=== PATIENT | male | born 1980 | race Caucasian/White ===

== ENCOUNTER 2020-08-27 18:19 | Day surgery (SDCO) | payer OTHER ==
[~2020-08-27 18:19] MED LIST: CLARITIN10 MG PO; MOTRIN600 MG PO; NAPROXEN500 MG PO
[2020-08-27 19:04] LABS: INR 1.07 (0.9-1.2); PROTHROMBIN TIME 13.2 SECONDS (11.4-13.6); PTT 27.6 SECONDS (22.2-34.7)
[2020-08-27 19:05] LABS: BASOPHIL 0.8 % (0-2); EOSINOPHIL 1.8 % (0-5); HCT 41.7 % (42.0-52.0); HGB 13.9 g/dl (13.2-18.0); LYMPHOCYTE 38.5 % (15-48); MCH 27.8 pg (25.0-31.0); MCHC 33.3 g/dL (32.0-36.0); MCV 83.4 fL (78.0-100.0); MONOCYTE 9.6 % (0-12); NEUTROPHIL 48.5 % (41-80); NRBC 0; PLT 286 K/uL (150-400); RDW 12.4 % (11.5-14.0); WBC 7.6 K/uL (4.0-10.5)
[2020-08-27 19:17] LABS: ALBUMIN 3.9 g/dL (3.4-5.0); BILIRUBIN - TOTAL 0.2 mg/dL (0.2-1.0); BUN/CREAT RATIO (CALC) 18.2 RATIO; CREATININE 0.99 mg/dL (0.67-1.17); GLOBULIN (CALCULATION) 3.4 g/dL; POTASSIUM 3.1 mmol/L (3.5-5.1); TOTAL PROTEIN 7.3 g/dL (6.4-8.2)
[2020-08-28 05:56] LABS: BASOPHIL 0.7 % (0-2); EOSINOPHIL 3.8 % (0-5); HCT 39.3 % (42.0-52.0); HGB 12.8 g/dl (13.2-18.0); LYMPHOCYTE 46.7 % (15-48); MCH 27.6 pg (25.0-31.0); MCHC 32.6 g/dL (32.0-36.0); MCV 84.7 fL (78.0-100.0); MPV 9.1 fL (6.0-9.5); NEUTROPHIL 40.5 % (41-80); NRBC 0; PLT 240 K/uL (150-400); RBC 4.64 M/uL (4.70-6.00); RDW 12.4 % (11.5-14.0)
[2020-08-28] MEDS ORDERED: CYCLOBENZAPRINE10 MG PO (06:07)
[2020-08-28] MEDS ORDERED: PREDNISONE 20MG20 MG PO (06:08)
[2020-08-28] MEDS ORDERED: IBUPROFEN800 M1 PO (06:09)
[2020-08-28 06:23] LABS: ALBUMIN 3.2 g/dL (3.4-5.0); BILIRUBIN - TOTAL 0.3 mg/dL (0.2-1.0); BUN/CREAT RATIO (CALC) 16.2 RATIO; CREATININE 0.99 mg/dL (0.67-1.17); GLOBULIN (CALCULATION) 2.8 g/dL; POTASSIUM 3.6 mmol/L (3.5-5.1)
[2020-08-28 06:34] LABS: CKMB 2.6 ng/mL (0.0-3.6)
--- NOTE | 2020-08-28 10:57 | NUR ---
08/28/20 Patient was transferred to [facility]
--- NOTE | 2020-08-28 10:58 | NUR ---
PT DC'd/TRANSFERRED @ 1055 -RECEIVING FACILITY: [facility] -POSSIBLE STRESS TEST/CARDIAC CATH -RECEIVING PHYSICIAN - DR. GOLDSMITH. -VS STABLE -NO S/S OF PAIN/DISTRESS -A&0 -TAKEN VIA STRETCHER BY EMS; W/ PT
== END 2020-08-28 10:55 | disposition other institution (70) ==
LOC: FER 18:19 → FTCU 21:45
PROVIDERS: Emergency Medicine; Nurse Practitioner; ADMIT Internal Medicine
DX: R07.9 Chest pain, unspecified (principal); I10 Essential (primary) hypertension; Z20.822 Contact with and (suspected) exposure to COVID-19
CPT/HCPCS: 36415; 71045; 80053; 80061; 82553; 84484; 85025; 85610; 85730; 93005; G0378; J1650; U0002

== ENCOUNTER 2021-12-13 08:16 | Emergency (ER) | payer OTHER ==
[~2021-12-13 08:16] MED LIST changes: +CYCLOBENZAPRINE10 MG PO; +IBUPROFEN800 M1 PO; +PREDNISONE 20MG20 MG PO
[2021-12-13 09:22] LABS: BASOPHIL 0.2 % (0-2); EOSINOPHIL 1.8 % (0-5); HCT 44.6 % (42.0-52.0); HGB 14.6 g/dl (13.2-18.0); LYMPHOCYTE 24.5 % (15-48); MCHC 32.7 g/dL (32.0-36.0); MCV 82.4 fL (78.0-100.0); MONOCYTE 14.6 % (0-12); MPV 9.3 fL (6.0-9.5); NEUTROPHIL 58.7 % (41-80); NRBC 0; PLT 226 K/uL (150-400); RBC 5.41 M/uL (4.70-6.00); RDW 11.6 % (11.5-14.0); WBC 4.5 K/uL (4.0-10.5)
[2021-12-13 09:23] LABS: INFLUENZA A NAA NEGATIVE (NEGATIVE)
[2021-12-13 09:25] LABS: CORONAVIRUS 2019 SARS-COV-2 POSITIVE (NEGATIVE)
[2021-12-13 09:41] LABS: ALBUMIN 3.6 g/dL (3.4-5.0); BILIRUBIN - TOTAL 0.4 mg/dL (0.2-1.0); BUN/CREAT RATIO (CALC) 12.8 RATIO; CREATININE 0.86 mg/dL (0.67-1.17); GLOBULIN (CALCULATION) 3.5 g/dL; POTASSIUM 4.4 mmol/L (3.5-5.1); TOTAL PROTEIN 7.1 g/dL (6.4-8.2)
[2021-12-13 10:22] LABS: BILIRUBIN NEGATIVE (NEGATIVE); BLOOD NEGATIVE Ery/uL (NEGATIVE); CLARITY CLEAR (CLEAR); COLOR YELLOW (YELLOW); GLUCOSE (U) NORMAL (NORMAL); LEUKOCYTES NEGATIVE Leu/uL (NEGATIVE); NITRITE NEGATIVE (NEGATIVE); PROTEIN NEGATIVE (NEGATIVE); UROBILINOGEN 0.2 mg/dL (0.2-1.0)
[2021-12-13] MEDS ORDERED: VENTOLIN HFA18 GM INH ×2 (10:31→10:34)
[2021-12-13] MEDS ORDERED: NAPROXEN500 MG PO ×2 (10:31→10:34)
[2021-12-13] MEDS ORDERED: ONDANSETRON ODT4 MG PO ×2 (10:31→10:34)
[2021-12-13] MEDS ORDERED: TESSALON PERLE100 MG PO (10:33)
== END 2021-12-13 10:45 | disposition home or self-care (01) ==
LOC: FER 08:16
PROVIDERS: Emergency Medicine
DX: U07.1 COVID-19 (principal)
CPT/HCPCS: 36415; 71250; 80053; 81003; 84145; 85025; J1885; J7030; U0002